=== PATIENT | male | born 1965 | race Caucasian/White ===

== ENCOUNTER 2019-08-01 22:19 | Inpatient (IN) ==
[2019-08-01 23:33] LABS: Basophils % 0.5 %; Eosinophils # 0.2 K/mcL (0.0-0.6); Eosinophils % 4.6 %; Hematocrit 39.1 % (37.5-50.1); Hemoglobin 14.3 g/dL (12.9-16.9); Immature Granulocytes % 0.7 % (0-4); Lymphocytes # 1.1 K/mcL (0.6-4.6); Lymphocytes % 26.4 %; Mean Corpuscular HGB Conc 36.6 g/dL (31.6-35.5); Mean Corpuscular Hemoglobin 33.8 pg (28.0-33.3); Mean Corpuscular Volume 92.4 fL (83.0-100.0); Mean Platelet Volume 9.5 fL (9.4-12.4); Monocytes # 0.5 K/mcL (0.0-1.3); Monocytes % 10.9 %; Neutrophils # 2.5 K/mcL (1.6-8.9); Platelet Count 161 K/mcL (140-400); Red Blood Count 4.23 M/mcL (4.19-5.50); Segmented Neutrophils % 56.9 %; White Blood Count 4.3 K/mcL (4.3-11.1)
[2019-08-01 23:50] LABS: Acetaminophen < 10 mcg/mL (10-20); BUN/Creatinine Ratio 21 (6-26); Blood Urea Nitrogen 14 mg/dL (6-20); Calcium 9.3 mg/dL (8.6-10.3); Carbon Dioxide 23 mEq/L (23-29); Chloride 108 mEq/L (98-107); Ethanol < 10 mg/dL (Less than 10); Glucose 101 mg/dL (70-105); Osmolality,Calculated 289 (280-300); Potassium 3.8 mEq/L (3.5-5.1); Salicylate < 2.5 mg/dL (15.0-30.0); Sodium 139 mEq/L (136-145); eGFR For African Americans > 60 (> 60); eGFR For Non-African Americans > 60 (> 60)
[2019-08-02 01:52] LABS: Amphetamine Screen,Urine Negative ng/mL (Cutoff=1000); Barbiturate Screen,Urine Negative ng/mL (Cutoff=200); Benzodiazepines Screen,Urine Negative ng/mL (Cutoff=200); Cannabinoid Screen,Urine Negative ng/mL (Cutoff = 50); Cocaine Screen,Urine Negative ng/mL (Cutoff= 300); Opiate Screen,Urine Positive ng/mL (Cutoff=300); Phencyclidine Screen,Urine Negative ng/mL (Cutoff=25)
[2019-08-02] MEDS ORDERED: Mirtazapine 15 MG TABLET PO STA (03:38)
[2019-08-02] MEDS ORDERED: *HR* HYDROcodone/Acet 5/325 mg TABLET PO ONE (03:38)
[2019-08-02] MEDS ORDERED: Gabapentin 300 MG CAPSULE PO STA (03:38)
[2019-08-02] MEDS ORDERED: Venlafaxine XR (24 HR) 150 MG CAP.ER.24H PO STA (03:39)
[2019-08-02] MEDS ORDERED: Haloperidol Lactate 5 MG/ML VIAL IM PRN (04:17)
[2019-08-02] MEDS ORDERED: MOM Conc 10 ML UD.LIQ PO PRN (04:17)
[2019-08-02] MEDS ORDERED: *HR* LORazepam 2 MG/ML VIAL IM PRN (04:17)
[2019-08-02] MEDS ORDERED: *HR* LORazepam 1 MG TABLET PO PRN (04:17)
[2019-08-02] MEDS ORDERED: Mag Hydrox/Al Hydrox/Simeth 30 ML UDC PO PRN (04:17)
[2019-08-02] MEDS ORDERED: hydrOXYzine pamoate 25 MG CAPSULE PO PRN (04:17)
[2019-08-02] MEDS: Gabapentin 300 MG CAPSULE PO SCH ×3 (10:22→21:23)
[2019-08-02] MEDS: Ibuprofen 400 MG TABLET PO PRN (18:39)
[2019-08-02] MEDS ORDERED: Venlafaxine XR (24 HR) 75 MG CAP.ER.24H PO SCH (21:00)
[2019-08-02] MEDS: Venlafaxine XR (24 HR) 75 MG CAP.ER.24H PO SCH (21:21)
[2019-08-02] MEDS: Mirtazapine 15 MG TABLET PO SCH (21:22)
[2019-08-02] MEDS: traZODone 50 MG TABLET PO PRN (21:23)
[2019-08-03] MEDS: Ibuprofen 400 MG TABLET PO PRN (06:37)
[2019-08-03] MEDS: Gabapentin 300 MG CAPSULE PO SCH ×3 (08:18→20:52)
[2019-08-03] MEDS: Ibuprofen 800 MG TABLET PO PRN ×2 (13:59→21:23)
[2019-08-03] MEDS: Venlafaxine XR (24 HR) 75 MG CAP.ER.24H PO SCH (20:53)
[2019-08-03] MEDS: traZODone 50 MG TABLET PO PRN (20:53)
[2019-08-03] MEDS: Mirtazapine 15 MG TABLET PO SCH (20:53)
[2019-08-04] MEDS: Gabapentin 300 MG CAPSULE PO SCH ×3 (08:55→20:52)
[2019-08-04] MEDS: traZODone 50 MG TABLET PO PRN (20:51)
[2019-08-04] MEDS: Mirtazapine 15 MG TABLET PO SCH (20:52)
[2019-08-04] MEDS: Venlafaxine XR (24 HR) 75 MG CAP.ER.24H PO SCH (20:52)
[2019-08-04] MEDS: Ibuprofen 800 MG TABLET PO PRN (21:24)
[2019-08-04 21:46] VITALS: BP 162/97
[2019-08-05] MEDS: Ibuprofen 800 MG TABLET PO PRN (06:19)
[2019-08-05] MEDS: Gabapentin 300 MG CAPSULE PO SCH (08:19)
== END 2019-08-05 08:50 | disposition home or self-care (01) | DRG 885 ==
LOC: 1ANU 22:19 → EMEROOARM 22:19 → 1ANU 08-02 04:17 → SUATTDRO 08-02 11:38
PROVIDERS: ADMIT Psychiatry & Neurology Forensic Psychiatry; ATTEND Psychiatry & Neurology Psychiatry